=== PATIENT | female | born 1970 | race Caucasian/White ===

== ENCOUNTER 2017-02-04 09:39 | Emergency (ER) | payer OTHER ==
[2017-02-04 09:46] VITALS: O2SAT 98
--- NOTE | 2017-02-04 09:56 | EDPHY ---
H & P Stated Complaint: Twisted R ankle yesterday Source: Patient Exam Limitations: No limitations - Personal History LMP (Females 10-55): Extended Cycle BCP/Inj Current Tetanus Diphtheria and Acellular Pertussis (TDAP): Yes - Medical/Surgical History Hx Asthma: Yes Other PMH: fibromyalgia. asthma. HTN - Social History Smoking Status: Never smoked HPI/ROS: CHIEF COMPLAINT: Ankle pain, fall HISTORY OF PRESENT ILLNESS: Patient was walking yesterday when she tripped and fell. She reports an inversion injury of the right ankle. Moderate to severe pain on the right ankle more lateral than medial. It has worsened over the past 24 hours. She is elevated, apply ice, take anti-inflammatories and Relafen that she has for fibromyalgia. No improvement. Some moderate to severe pain when ambulating. Minimal at rest. No radiating pain. No numbness or tingling. No pain in the proximal fibula. No injury elsewhere. PRIOR ORTHO INJURIES: Remote ankle sprain, does not recall which one ESTABLISHED ORTHOPEDIST: None REVIEW OF SYSTEMS: Ten systems reviewed and are negative unless otherwise noted in the HPI EXAMINATION General Appearance: Alert, no distress Cardiovascular: Pulses normal throughout. Symmetric DP and PT pulses are 2+. Brisk cap refill Neurological: A&O, sensory symmetric, strength symmetric. Normal proprioception of the great toe. Skin: Warm and dry, no rash. Ecchymosis on the lateral ankle on the right Extremities: Right lower extremity: Moderate tenderness and edema over the right lateral ankle. There is ecchymosis. No crepitus or instability. Range of motion not tested prior to x-ray. There is no tenderness of the midfoot or calcaneus. No tenderness of the proximal fibula. Neurovascular intact distally Psychiatric: Mood and affect normal DIFFERENTIAL DIAGNOSES: Including but not limited to fracture, sprain, strain, fracture dislocation, contusion, hematoma MDM: 9:55 a.m. Acute right ankle sprain that happen yesterday. There is ecchymosis, edema and pain. Suspect fracture versus ligamentous tear. She is neurovascular intact. X-ray has been ordered. 10:30 a.m. X-ray has been read as no acute fracture. We will treat her for a severe sprain as she does have some ecchymosis and I suspect she may have a partial thickness injury of the dorsiflexors. I will place her in a [place] boot and crutches if needed. She will follow up with Orthopedics for definitive care. She is comfortable this plan. We discussed return to the emergency department precautions as needed. ED Precautions: Worsening pain. Erythema, edema, cyanosis, pallor, paresthesia or anesthesia. SUPERVISION: This patient was independently evaluated without direct examination by the attending physician. Case was discussed with attending physician. (Cash Kramer ) Constitutional: Initial Vital Signs Temperature (C) 37.3 C 02/04/17 09:40 Heart Rate 112 H 02/04/17 09:40 Respiratory Rate 18 02/04/17 09:40 Blood Pressure 175/92 H 02/04/17 09:40 O2 Sat (%) 98 02/04/17 09:40 O2 Delivery Mode Room Air Allergies/Adverse Reactions: avolox Allergy (Intermediate, Uncoded 02/04/17 09:46) Hives Home Medications: Medication Instructions Recorded Amitriptyline HCl [Elavil 10 mg 5 mg PO HS 02/04/17 (*)] Amlodipine Besylate [Norvasc] 5 mg PO 02/04/17 Azelastine [Astelin Nasal [place] 1 sprays [place] BID 02/04/17 (RX)] Budesonide/Formoterol 160/4.5 1 puffs IH BID 02/04/17 [Symbicort 160-4.5 Mcg Inh (*)] Fluticasone Hfa 44 Mcg [Flovent 44 2 puffs IH BID 02/04/17 MCG Hfa MDI (*)] Hydrocodone/APAP 5/325 [[place] 1 - 2 tab PO Q4H PRN #14 tab 02/04/17 5/325 (*)] Losartan Potassium [Cozaar 50 mg 100 mg PO 02/04/17 (*)] MILNACIPRAN HCL [[place] 50 mg] 50 mg PO 02/04/17 Montelukast Sodium [Singulair 10 10 mg PO DAILY@1800 02/04/17 mg (*)] Nabumetone [Relafen 500 mg (*)] 500 mg PO PRN 02/04/17 Nebivolol HCl [Bystolic 5 mg (*)] 10 mg PO DAILY 02/04/17 Tiotropium Inhaler [Spiriva 1 inh IH 02/04/17 Inhaler] Xolair 02/04/17 ZyrTEC 10 mg (*) 02/04/17 medroxyPROGESTERone [Depo-Provera 150 mg IM Q90D 02/04/17 150 mg/ml (*)] Medical Decision Making - Diagnostics Imaging Results: Imaging Impressions Ankle X-Ray 02/04/17 09:54 Impression: Ankle sprain. No acute fracture. ED Course/Re-evaluation: I did not see this patient while she was in the emergency department. However her care was discussed with the PA while the patient was in the department. I agree with treatment plan and management (Justino Carmichael) Departure - Departure Disposition: Home, Routine, Self-Care Clinical Impression: Right ankle sprain Qualifiers: Encounter type: initial encounter Involved ligament of ankle: unspecified ligament Qualified Code(s): S93.401A - Sprain of unspecified ligament of right ankle, initial encounter Condition: Good Instructions: Ankle Sprain (ED) Additional Instructions: Weightbearing as tolerated. I recommend the use the [place] boot for the next 2- 3 days. Contact Orthopedics tomorrow for definitive care. Return here for increasing swelling, pain, numbness or tingling Referrals: SHAISTA YUAN [Other] - As per Instructions Milton Brown MD [Medical Doctor] - As per Instructions Prescriptions: Hydrocodone/APAP 5/325 [[place] 5/325 (*)] 1 - 2 tab PO Q4H PRN #14 tab PRN Reason: Pain, Moderate
[2017-02-04 10:45] VITALS: BP 162/84; PULSE 98; RESP 16; TEMP 98.6
== END 2017-02-04 10:50 | disposition home or self-care (01) ==
DX: S93.401A Sprain of unspecified ligament of right ankle, initial encounter (principal); J45.909 Unspecified asthma, uncomplicated; I10 Essential (primary) hypertension; W01.0XXA Fall on same level from slipping, tripping and stumbling without subsequent striking against object, initial encounter; Y99.8 Other external cause status; Y93.01 Activity, walking, marching and hiking
CPT/HCPCS: L4386